=== PATIENT | female | born 1945 | race Caucasian/White ===

== ENCOUNTER 2017-05-28 11:11 | Emergency (ER) | payer MEDICARE, BC ==
[2017-05-28] MEDS ORDERED: HYDROcodone/Acetaminophen 5/325 mg Tablet ONE (11:57)
--- NOTE | 2017-05-28 13:49 | RAD ---
THREE VIEWS RIGHT WRIST: DATE: 05/28/17. HISTORY: Fall. Right wrist pain. FINDINGS: AP, lateral, and oblique views right wrist are obtained. There is severe osteoarthritis in the 1st carpometacarpal joint. There are sclerotic changes seen. Osteophytes noted. No evidence of fractures, subluxations, or bony lesions seen. IMPRESSION: Right 1st carpometacarpal osteoarthritis. No acute abnormality is seen. POS: [facility]
== END 2017-05-28 12:42 | disposition home or self-care (01) ==
LOC: NAV ERS 11:11
DX: S63.641A Sprain of metacarpophalangeal joint of right thumb, initial encounter (principal); M18.11 Unilateral primary osteoarthritis of first carpometacarpal joint, right hand; E11.9 Type 2 diabetes mellitus without complications; E78.5 Hyperlipidemia, unspecified; F41.9 Anxiety disorder, unspecified; I10 Essential (primary) hypertension; Z79.84 Long term (current) use of oral hypoglycemic drugs; Z79.899 Other long term (current) drug therapy; I25.10 Atherosclerotic heart disease of native coronary artery without angina pectoris; W18.30XA Fall on same level, unspecified, initial encounter
CPT/HCPCS: 29125